=== PATIENT | male | born 2000 | race Caucasian/White ===

== ENCOUNTER 2020-04-06 23:50 | Emergency (ER) | payer OTHER ==
[~2020-04-06] VITALS: Ht 162.6 cm; Wt 59.0 kg
[2020-04-07 00:29] LABS: ABSOLUTE EOSINOPHILS 0.1 thou/uL (0.0-0.7); ABSOLUTE LYMPHOCYTES 2.9 thou/uL (0.8-5.3); ABSOLUTE MONOCYTES 0.7 thou/uL (0.0-1.2); ABSOLUTE NEUTROPHILS 4.1 thou/uL (1.6-8.1); BASOPHILS 0.4 %; EOSINOPHILS 1.7 %; HEMATOCRIT 44.5 % (42.0-52.0); HEMOGLOBIN 15.5 gm/dL (14.0-18.0); LYMPHOCYTES 36.8 %; MCH 30.2 pg (26.0-34.0); MCHC 34.9 g/dL (28.0-37.0); MCV 86.7 fL (80.0-100.0); MONOCYTES 9.4 %; MPV 8.5 fl. (7.2-11.1); NUCLEATED RBCS 0 /100WBC; PLATELET COUNT* 213 thou/uL (150-400); POLYS 51.7 %; RBC 5.13 mil/uL (4.50-6.00); RDW-CV 13.9 % (10.5-14.5); WBC 7.9 thou/uL (4.0-11.0)
[2020-04-07 00:31] LABS: CALCIUM 8.3 mg/dL (8.5-10.1); CREATININE 1.3 mg/dL (0.6-1.3); POTASSIUM 3.6 mmol/L (3.5-5.1)
[2020-04-07 00:36] LABS: TOTAL BILIRUBIN 0.3 mg/dL (<0.1-1.0); TOTAL PROTEIN 7.1 g/dL (6.4-8.2)
[2020-04-07 01:34] LABS: URINE BILIRUBIN NEGATIVE (Negative); URINE BLOOD NEGATIVE (Negative); URINE CLARITY CLEAR; URINE COLOR YELLOW; URINE GLUCOSE-RANDOM NEGATIVE (Negative); URINE KETONES NEGATIVE (Negative); URINE LEUKOCYTES-REFLEX NEGATIVE (Negative); URINE NITRITE-REFLEX NEGATIVE (Negative); URINE PROTEIN 2+ (Negative)
[2020-04-07 01:42] LABS: SQUAMOUS 0-3 Few /LPF (0-3)
[2020-04-07 01:43] LABS: AMORPHOUS URATES Many /LPF (None Seen); AMP/METHAMP Negative (Negative); BACTERIA-REFLEX 1-9 Few /HPF (None Seen); BARBITURATES Negative (Negative); BENZODIAZEPINES Negative (Negative); COARSE GRANULAR CASTS 0-3 Few /LPF (None Seen); COCAINE Negative (Negative); FINE GRANULAR CASTS 0-3 Few /LPF (None Seen); METHADONE Negative (Negative); MUCUS 0-3 Light strn/LPF (None Seen); OPIATES Negative (Negative); PCP Negative (Negative); THC POSITIVE (Negative); URINE RBC 0-2 Rare /HPF (0-2); URINE WBC-REFLEX None Seen /HPF (0-5)
[2020-04-07 03:15] VITALS: BP 151/66
--- NOTE | 2020-04-07 14:16 | EKG ---
[place] [address] ELECTROCARDIOGRAM REPORT Name: QUINCY GILL Room: [facility]#: [id number] Admission: 04/06/20 Attend Phys: Discharge: 04/07/20 Date of : [birth year] Date of Service: 04/07/20 0009 Report #: [id number] THIS REPORT FOR: //name// [facility] ED Test Date: 2020-04-07 Test Time: 00:09:50 Pat Name: QUINCY GILL Department: Room: Gender: [employer]: MD : [id number] Requested By: Leslie De Leon Order Number: [id number] Jean Marie MD: Ezekiel Elena Measurements Intervals [place] Rate: 70 P: 69 [place]: 149 QRS: 80 QRSD: 100 T: 46 QT: 388 QTc: 419 Interpretive Statements Sinus rhythm Probable left atrial enlargement Baseline wander in lead(s) V1 Possible LVH No previous ECG available for comparison Electronically Signed On 04-07-2020 14:15:27 CDT by Ezekiel Elena [email or web address] <ELECTRONICALLY SIGNED> By: Ezekiel Elena MD, [facility] 04/07/20 1415 Ezekiel Elena MD, FAC /EPI
== END 2020-04-07 03:20 | disposition short-term general hospital (02) ==
LOC: M.ERS 23:50
PROVIDERS: Personal Emergency Response Attendant
DX: S01.81XA Laceration without foreign body of other part of head, initial encounter (principal); S80.212A Abrasion, left knee, initial encounter; S80.211A Abrasion, right knee, initial encounter; S60.512A Abrasion of left hand, initial encounter; S60.511A Abrasion of right hand, initial encounter; S50.312A Abrasion of left elbow, initial encounter; F12.90 Cannabis use, unspecified, uncomplicated; J45.909 Unspecified asthma, uncomplicated; V03.99XA Pedestrian with other conveyance injured in collision with car, pick-up truck or van, unspecified whether traffic or nontraffic accident, initial encounter; Y93.89 Activity, other specified; Y92.413 State road as the place of occurrence of the external cause; Y99.9 Unspecified external cause status